=== PATIENT | female | born 1965 | race Caucasian/White ===

== ENCOUNTER 2016-09-25 10:49 | Emergency (ER) | payer MEDICAID ==
[~2016-09-25] VITALS: Ht 152.4 cm; Wt 45.0 kg
[~2016-09-25 10:49] MED LIST: CITA10TA9 PO; FOLI-43 PO; RISP0.2514 PO
[2016-09-25 10:50] VITALS: BP 120/80
== END 2016-09-25 12:02 | disposition home or self-care (01) ==
LOC: ER 10:50
DX: R51 Headache (principal); R44.0 Auditory hallucinations; F20.9 Schizophrenia, unspecified; F41.9 Anxiety disorder, unspecified; F15.90 Other stimulant use, unspecified, uncomplicated
CPT/HCPCS: 99283

== ENCOUNTER 2017-08-31 21:11 | Emergency (ER) | payer SELFPAY ==
[~2017-08-31] VITALS: Ht 157.5 cm; Wt 65.0 kg
[2017-09-01] MEDS ORDERED: FLUORESCEIN SODIUM 1MG/STRIP OP ONE (01:45)
[2017-09-01] MEDS ORDERED: TETRACAINE 0.5% OPHTH DROPS 4ML OP ONE (01:45)
[2017-09-01 02:30] VITALS: BP 152/88
== END 2017-09-01 02:30 | disposition home or self-care (01) ==
LOC: ER 21:59
DX: H10.89 Other conjunctivitis (principal); F20.9 Schizophrenia, unspecified; F17.200 Nicotine dependence, unspecified, uncomplicated; Z76.0 Encounter for issue of repeat prescription
CPT/HCPCS: 99283; Z7610